=== PATIENT | female | born 1995 | race Two or more races ===

== ENCOUNTER 2023-01-19 20:49 | Emergency (ER) | payer OTHER ==
[~2023-01-19] VITALS: Ht 165.1 cm; Wt 88.5 kg
== END 2023-01-19 22:36 | disposition home or self-care (01) ==
LOC: ER 20:49
DX: O26.899 Other specified pregnancy related conditions, unspecified trimester (principal); Z3A.10 10 weeks gestation of pregnancy; R10.2 Pelvic and perineal pain